=== PATIENT | female | born 1980 | race American Indian/Alaskan Native ===

== ENCOUNTER 2018-03-28 15:02 | Outpatient (CLI) | payer OTHER | END 2018-03-28 16:36 | disposition HB | LOC: NST 15:02 | DX: Z34.83 Encounter for supervision of other normal pregnancy, third trimester (principal) ==

== ENCOUNTER 2018-03-31 09:45 | Inpatient (IN) | payer OTHER ==
[~2018-03-31] VITALS: Ht 157.5 cm; Wt 1.4 kg
[2018-03-31] MEDS ORDERED: ZANTAC300 MG PO (12:29)
[2018-03-31] MEDS ORDERED: ASPIR 8181 MG PO (12:30)
[2018-03-31] MEDS ORDERED: PRENATAL FORMU1 EAC1 PO (12:30)
== END 2018-04-11 15:25 | disposition home or self-care (01) | DRG 786 ==
LOC: LDR 09:45 → OB/GYN 09:45 → LDR 13:47 → OB/GYN 04-02 11:37
PROVIDERS: ADMIT Obstetrics & Gynecology Maternal & Fetal Medicine
PROC: 4A1HXCZ Monitoring of Products of Conception, Cardiac Rate, External Approach (ICD-10-PCS; 2018-03-31)
PROC: 4A033R1 Measurement of Arterial Saturation, Peripheral, Percutaneous Approach (ICD-10-PCS; 2018-04-08)
PROC: 10D00Z1 Extraction of Products of Conception, Low, Open Approach (ICD-10-PCS; principal; 2018-04-08 18:15)
DX: O14.13 Severe pre-eclampsia, third trimester (principal); O60.14X0 Preterm labor third trimester with preterm delivery third trimester, not applicable or unspecified; Z3A.32 32 weeks gestation of pregnancy; Z37.0 Single live birth; Z22.330 Carrier of Group B streptococcus

== ENCOUNTER 2020-10-19 15:50 | Emergency (ER) | payer OTHER ==
[~2020-10-19] VITALS: Ht 157.5 cm; Wt 81.6 kg
[~2020-10-19 15:50] MED LIST: ASPIR 8181 MG PO; PRENATAL FORMU1 EAC1 PO; ZANTAC300 MG PO
[2020-10-19] MEDS ORDERED: PROBIOTIC1 EAC2 PO (19:32)
[2020-10-19] MEDS ORDERED: ZITHROMAX500 MG PO (19:32)
== END 2020-10-19 19:55 | disposition home or self-care (01) ==
LOC: ER 15:50
DX: R19.7 Diarrhea, unspecified (principal); Z03.818 Encounter for observation for suspected exposure to other biological agents ruled out